=== PATIENT | male | born 1935 | race Caucasian/White ===

== ENCOUNTER 2021-07-27 15:12 | Outpatient (CLI) | payer MEDICARE, BC | END 2021-07-27 15:13 | disposition home or self-care (01) | LOC: CSHRAD 15:12 | PROVIDERS: ATTEND Internal Medicine | DX: R07.89 Other chest pain (principal); R91.8 Other nonspecific abnormal finding of lung field | CPT/HCPCS: 71046 ==

== ENCOUNTER 2021-08-07 08:59 | Outpatient (CLI) | payer MEDICARE, BC ==
[2021-08-07 09:58] LABS: Estimated GFR-MDRD - POC Greater than 90
== END 2021-08-07 09:00 | disposition home or self-care (01) ==
LOC: CSHCT 08:59
PROVIDERS: ATTEND Internal Medicine
DX: J18.9 Pneumonia, unspecified organism (principal); R07.89 Other chest pain; R91.8 Other nonspecific abnormal finding of lung field; N28.1 Cyst of kidney, acquired
CPT/HCPCS: 71260; 71270; 82565

== ENCOUNTER 2022-03-02 08:42 | Outpatient (CLI) | payer MEDICARE, BC ==
[2022-03-02] MEDS ORDERED: Iopamidol 300 61% 100 ML VIAL FS ONE (14:35)
== END 2022-03-02 08:43 | disposition home or self-care (01) ==
LOC: CSHCT 08:42
PROVIDERS: ATTEND Internal Medicine Hematology & Oncology
DX: C45.0 Mesothelioma of pleura (principal)
CPT/HCPCS: 74177; Q9967

== ENCOUNTER 2022-07-27 08:21 | Outpatient (CLI) | payer MEDICARE, BC ==
[2022-07-27] MEDS ORDERED: Iopamidol 300 61% 100 ML VIAL FS ONE (14:38)
== END 2022-07-27 08:22 | disposition home or self-care (01) ==
LOC: CSHCT 08:21
PROVIDERS: ATTEND Internal Medicine Hematology & Oncology
DX: C45.0 Mesothelioma of pleura (principal); N28.1 Cyst of kidney, acquired; R91.8 Other nonspecific abnormal finding of lung field
CPT/HCPCS: 71260; 74177; Q9967